=== PATIENT | male | born 1935 | race Caucasian/White ===

== ENCOUNTER 2019-11-16 15:24 | Inpatient (IN) | payer OTHER, BC ==
[~2019-11-16] VITALS: Ht 180.3 cm; Wt 60.8 kg
[2019-11-16 15:34] VITALS: BP 149/78
--- NOTE | 2019-11-16 15:51 | NUR ---
PT WHEELCHAIR ASSISTED TO BED 07
--- NOTE | 2019-11-16 15:57 | NUR ---
84 Y/O MALE BIB FAMILY MEMBER. PT TRANSFERRED FROM WHEELCHAIR TO GURNEY VIA 2 PERSON CARRY. PT HAS DEMENTIA AND UNABLE TO ANSWER QUESTIONS/FOLLOW MY COMMANDS, THUS PT'S DAUGHTER STATE THAT THE BOARD AND CARE REPORTED TO PT'S DAUGHTER THAT THE PT HAS BEEN FAVORING HIS LEFT HIP AND PT APPEARS TO HAVE LEFT HIP PAIN. PT'S DAUGHTER STATES PT'S URINE PER BOARD AND CARE IS DARKER AND HAS AN ODOR. VSS. BED IN LOW POSITION, WHEELS LOCKED, 2 SIDERAILS UP. MEDICAL HX: DEMENTIA/HIP (POSSIBLE LEFT BUT DAUGHTER UNSURE) 10-15 YEARS AGO BALDO
--- NOTE | 2019-11-16 16:17 | NUR ---
PER PT'S DAUGHTER PT TOOK TYLENOL AT NOON
[2019-11-16] MEDS ORDERED: NACL 0.9% 1,000 ML IV SCH (16:18)
[2019-11-16] MEDS ORDERED: cefTRIAXone 1,000 MG in DEXT 5% MINI-BAG PLUS 50 ML IV ONE (16:20)
[2019-11-16] MEDS ORDERED: cefTRIAXone 1,000 MG VIAL ONE (17:01)
--- NOTE | 2019-11-16 17:51 | NUR ---
PT RESTING IN BED IN POSITION OF COMFORT. BED LOW, WHEELS LOCKED, 2 SIDERAILS UP. VSS. WILL CONTINUE TO MONITOR.
[2019-11-16 18:28] LABS: BASOPHILS % (AUTO) 0.2 % (0.0-2.0); HEMATOCRIT 24.2 % (36-52); HEMOGLOBIN 8.2 g/dL (12.0-18.0); LYMPHOCYTES # (AUTO) 0.3 K/uL (2.0-11.5); LYMPHOCYTES % (AUTO) 1.8 % (20.5-51.1); MEAN CORPUSCULAR HEMOGLOBIN 29 pg (27-31); MEAN CORPUSCULAR HGB CONC 34 g/dL (33-37); MEAN CORPUSCULAR VOLUME 85.9 fL (80-94); MONOCYTES % (AUTO) 6.4 % (1.7-9.3); NEUTROPHILS # (AUTO) 14.5 K/uL (1.8-7.7); NEUTROPHILS % (AUTO) 91.6 % (42.2-75.2); PLATELET COUNT (AUTO) 305 K/uL (140-450); RED BLOOD CELL COUNT(AUTO) 2.82 MIL/uL (4.20-6.10); RED CELL DISTRIBUTION WIDTH 16.4 % (11.6-13.7); WHITE BLOOD COUNT (AUTO) 15.9 K/uL (4.8-10.8)
[2019-11-16 18:32] LABS: APPEARANCE,URINE CLEAR (CLEAR); BILIRUBIN,URINE NEGATIVE (NEGATIVE); BLOOD, URINE 3+ (NEGATIVE); COLOR,URINE YELLOW (YELLOW); LEUKOCYTE ESTERASE ,URINE 1+ (NEGATIVE); NITRITE, URINE NEGATIVE (NEGATIVE); UGLUCOSE NEGATIVE (NEGATIVE)
[2019-11-16 18:44] LABS: ALBUMIN 1.8 g/dL (3.4-5.0); ANION GAP 13.5 (8-16); ASPARTATE AMINOTRANSFERASE 142 U/L (15-37); CARBON DIOXIDE 25.4 mmol/L (21-32); CHLORIDE 102 mmol/L (98-107); CREATININE 0.8 mg/dL (0.6-1.3); GLUCOSE 203 mg/dL (74-106); POTASSIUM 4.9 mmol/L (3.5-5.1); SODIUM SERUM 136 mmol/L (136-145); TOTAL BILIRUBIN 0.5 mg/dL (0.0-1.0); UREA NITROGEN, BLOOD 34 mg/dL (7-18)
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
--- NOTE | 2019-11-16 19:05 | NUR ---
PERMISSION OBTAINED FROM DAUGHTER KENN; CONSENT FOR ALL TREATMENT.
--- NOTE | 2019-11-16 19:17 | NUR ---
DR. CASTILLO AT BEDSIDE EXAMING PT. FAMILY PRESENT AT BEDSIDE TOO.
--- NOTE | 2019-11-16 19:22 | NUR ---
REPORT GIVEN TO TIM BADILLO. TRANSFER OF CARE AT THIS TIME
[2019-11-16 19:24] LABS: RBC,URINE 11-20 (MOD) /HPF (0-5)
[2019-11-16] MEDS ORDERED: DOCU-61 PO (19:38)
[2019-11-16] MEDS ORDERED: OLAN7.5T1 PO (19:38)
[2019-11-16] MEDS ORDERED: FERR325E14 PO (19:38)
[2019-11-16] MEDS ORDERED: POTA10TE30 PO (19:38)
--- NOTE | 2019-11-16 19:45 | NUR ---
PT RESTING IN BED. RESP EVEN AND UNLABORED. VSS.
--- NOTE | 2019-11-16 19:53 | NUR ---
IV THERAPY STARTED ON RIGHT UPPER FOREARM DUE TO ORDER OF CT W/ CONTRAST
[2019-11-16] MEDS ORDERED: ACET-2619 PO (20:03)
[2019-11-16] MEDS ORDERED: TEMA30CA23 PO (20:03)
[2019-11-16] MEDS ORDERED: LORA-476 PO (20:03)
[2019-11-16] MEDS ORDERED: MEMA5TAB PO (20:03)
[2019-11-16] MEDS ORDERED: TRAZ-343 PO (20:03)
--- NOTE | 2019-11-16 21:20 | NUR ---
PT TAKEN TO CT VIA EMMY
[2019-11-16] MEDS ORDERED: DOCUSATE SODIUM 100 MG GELCAP PO PRN (23:15)
[2019-11-16] MEDS ORDERED: HYDROcodone/APAP 7.5/325 MG 1 TAB PO PRN (23:15)
[2019-11-16] MEDS ORDERED: ACETAMINOPHEN 325 MG TAB PO PRN (23:15)
[2019-11-16] MEDS ORDERED: ONDANSETRON 4 MG/2 ML VIAL IM/IVP PRN (23:15)
[2019-11-16 23:44] LABS: PROTHROMBIN TIME 11.8 secs (10.8-13.4)
[2019-11-16 23:52] LABS: CHOL/HDL RATIO 4.3 (1-4.5); FREE T4 (FREE THYROXINE) 1.65 ng/dL (0.76-1.46); MAGNESIUM 1.8 mg/dL (1.8-2.4); PHOSPHORUS 1.9 mg/dL (2.5-4.9); THYROID STIMULATING HORMONE 0.56 uIU/mL (0.34-3.74)
--- NOTE | 2019-11-17 00:05 | NUR ---
RECEIVED PATIENT FROM ED VIA [employer]. REPORT GIVEN FROM ED NURSE STEFANI. NO SOB OR DISTRESS NOTED. ON ROOM AIR. IV ACCESS ON RIGHT HAND 20 GAUGE AND RIGHT FOREARM 20 GAUGE. PATENT, INTACT AND INFUSING WELL. PATIENT NOTED WITH RIGHT HIP SORE AND LOWER RIGHT LEG ABRASION. FONSECA CATHETER IN PLACE, DRAINING DARK COLORED. INITIAL VITAL SIGNS TAKEN. INITIAL ASSESSMENT DONE. PATIENT ON TELE MONITORING. MRSA NARES DONE AND SENT TO LAB. CALL LIGHT WITHIN PATIENT REACH. WILL CONTINUE TO MONITOR PATIENT.
--- NOTE | 2019-11-17 00:05 | NUR ---
Patient will be admitted to care of [facility]. Admited to TELEMETRY. Will go to room 111B. Belongings list completed. Report to HUSAM DUMONT.
[2019-11-17] MEDS: NACL 0.9% 1,000 ML IV SCH ×2 (00:38→15:52)
[2019-11-17] MEDS ORDERED: guaiFENesin DM 200/20 MG-10 ML 10 ML UDC PO PRN (01:55)
[2019-11-17] MEDS ORDERED: LORazepam 1 MG TAB PO PRN (01:55)
[2019-11-17] MEDS ORDERED: ZOLPIDEM 5 MG TAB PO PRN (01:55)
--- NOTE | 2019-11-17 02:20 | NUR ---
ROUNDS DONE. VISIBLE CHEST RISE AND FALL NOTED. WILL CONTINUE TO MONITOR PATIENT.
--- NOTE | 2019-11-17 04:05 | NUR ---
VITALS TAKEN AT THIS TIME. NO DISTRESS NOTED. WILL CONTINUE TO MONITOR PATIENT. Addendum: 11/17/19 at 0504 by Arleth Hart RN CATEGORY SHOULD BE "NURSE" NOT OCCUPATIONAL THERAPY.
[2019-11-17 04:10] VITALS: BP 125/60
--- NOTE | 2019-11-17 06:50 | NUR ---
PATIENT IN STABLE CONDITION. CALL LIGHT WITHIN PATIENT REACH. WILL ENDORSE TO AM SHIFT NURSE FOR CONTINUITY OF CARE.
--- NOTE | 2019-11-17 07:15 | NUR ---
RECEIVED PATIENT FROM ORE FIELDER NURSE HUSAM RESPIRATIONS EVEN AND UNLABORED, ROOM AIR. SKIN ASSESSMENT COMPLETE. SKIN WARM AND DRY. IV SITE PATENT AND INTACT. NO C/O PAIN. NO S/SX ACUTE DISTRESS. PATIENT ORIENTED TO ROOM, STAFF AND CALL LIGHT. CALL LIGHT WITHIN REACH. BED IN LOW POSITION. BED ALARM ON. WILL CONTINUE TO MONITOR.
[2019-11-17 07:22] LABS: ANION GAP 14.6 (8-16); CARBON DIOXIDE 26.6 mmol/L (21-32); CHLORIDE 101 mmol/L (98-107); CREATININE 0.8 mg/dL (0.6-1.3); GLUCOSE 169 mg/dL (74-106); HEMATOCRIT 30.5 % (36-52); HEMOGLOBIN 10.1 g/dL (12.0-18.0); LYMPHOCYTES # (AUTO) 0.5 K/uL (2.0-11.5); LYMPHOCYTES % (AUTO) 3.1 % (20.5-51.1); MEAN CORPUSCULAR HEMOGLOBIN 30 pg (27-31); MEAN CORPUSCULAR HGB CONC 33 g/dL (33-37); MEAN CORPUSCULAR VOLUME 89.3 fL (80-94); MONOCYTES # (AUTO) 0.9 K/uL (0.8-1.0); MONOCYTES % (AUTO) 5.7 % (1.7-9.3); NEUTROPHILS # (AUTO) 14.7 K/uL (1.8-7.7); NEUTROPHILS % (AUTO) 91.2 % (42.2-75.2); PLATELET COUNT (AUTO) 330 K/uL (140-450); POTASSIUM 4.2 mmol/L (3.5-5.1); RED BLOOD CELL COUNT(AUTO) 3.42 MIL/uL (4.20-6.10); RED CELL DISTRIBUTION WIDTH 16.3 % (11.6-13.7); SODIUM SERUM 138 mmol/L (136-145); UREA NITROGEN, BLOOD 26 mg/dL (7-18); WHITE BLOOD COUNT (AUTO) 16.2 K/uL (4.8-10.8)
[2019-11-17 08:00] VITALS: BP 125/60
--- NOTE | 2019-11-17 08:41 | NUR ---
PATIENT HAS BEEN SCREENED AND CATEGORIZED MODERATE NUTRITION RISK. PATIENT WILL BE SEEN WITHIN 3-5 DAYS OF ADMISSION. 11/19/19 11/21/[address]
--- NOTE | 2019-11-17 09:10 | NUR ---
PT PULLED OUT IV RIGHT HAND. LUMEN INTACT. NO INJURY TO SITE NOTED AT THIS TIME. PT IN STABLE CONDITION.
[2019-11-17] MEDS: SODIUM PHOS / POTASSIUM PHOS 1 PKT PDR PO SCH ×3 (09:33→18:12)
[2019-11-17] MEDS: MEMANTINE 10 MG TAB PO SCH (09:33)
--- NOTE | 2019-11-17 10:06 | NUR ---
OFF UNIT FOR HEAD CT W/O CONTRAST. TAKEN BY EMMY. PT IN STABLE CONDITION.
--- NOTE | 2019-11-17 10:14 | NUR ---
FNS CONSULT FOR MALNUTRITION HAS BEEN RECEIVED. PATIENT WILL BE ASSESSED BY RD WITHIN 1-2 DAYS AND RE-SCREEN AND CATEGORIZED HIGH NUTRITIONAL RISK. CHELSY VASQUEZ RD
--- NOTE | 2019-11-17 10:21 | NUR ---
BACK ON UNIT AFTER HEAD CT W/O CONTRAST. PT IN STABLE CONDITION.
--- NOTE | 2019-11-17 10:47 | NUR ---
DISCHARGE PLANNING: THIS IS AN 84 Y/O MALE PATIENT FROM [facility], WHO CAME IN DUE TO DARK COLORED URINE AND LEFT HIP PAIN. PAST MEDICAL HISTORY INCLUDE DEMENTIA, PSYCHOSIS AND ANXIETY. INITIAL DIAGNOSIS OF URINARY TRACT INFECTION AND SEPSIS. CURRENT LABS INCLUDE WBC 16.2, H/H 10.1/30.5, NA/K 138/4.2, BUN/CREA 26/0.8. CURRENT MEDS INCLUDE ROCEPHIN, ZYPREXA, NAMENDA. MRSA NARES, URINE AND BLOOD CULTURES PENDING. HIP X RAY NEGATIVE FOR FRACTURE OT DISLOCATION. CXR NEGATIVE. CT PELVIS/ABD SHOWED RIGHT HIP ARTHROPLASTY. NO CONSULTS AT THIS TIME. DC PLAN PENDING ON PATIENT'S RESPONSE TO TREATMENT. Addendum: 11/19/19 at 1654 by Madelin Mixon CM DC PLANNING: FAXED TO MIKO OROZCO, TWILA KRAMER, LUAN GONZALEZ, MARGARET LEE AND [facility] TO FOLLOW Addendum: 11/20/19 at 1451 by Madelin Mixon CM DC PLANNING PER PT'S DAUGHTER KENN BENAVIDES FAXED TO CORIE GARCIA AND SPOKE WITH BEL AT [facility] , WILL REVIEW THE CASE AND CALL BACK. JANET TO FOLLOW. Addendum: 11/20/19 at 1615 by Madelin Mixon CM DC PLANNING: RECEIVED A CALL FROM PRASHANT ALMEIDA SPOKE WITH BEL ACCEPTED PATIENT CAN GO TO ROOM 109A # TO GIVE REPORT [phone] PER BEL WILL PAY FOR TRANSPORT WITH [facility] [phone] CHARGE NURSE PLS CALL FOR TRANSPORT. Addendum: 11/23/19 at 1233 by Madelin Mixon CM DC PLANNING PT'S WBC TODAY 20.7 DR JEAN BAPTISTE ID ORDERED REPEAT URINALYSIS AND URINE CULTURE CONTINUE CURRENT THERAPY WITH [facility] IV NOTIFIED CORIE ALMEIDA LEFT A MESSAGE FOR BEL [phone] .JANET TO FOLLOW
[2019-11-17 12:00] VITALS: BP 129/78
--- NOTE | 2019-11-17 12:23 | NUR ---
PT SLEEPING AT THIS TIME. EASILY AROUSED. RESPIRATIONS EVEN AND UNLABORED. BED IN LOW POSITION. CALL LIGHT AT BEDSIDE. WILL CONTINUE TO MONITOR.
--- NOTE | 2019-11-17 13:15 | NUR ---
ASSISTED WITH FEEDING AT THIS TIME. PUREE MEAL PT AT 25% WITH 288ML FLUID INTAKE.
[2019-11-17] MEDS ORDERED: CRUSHER, PILL MC ONE (13:49)
--- NOTE | 2019-11-17 13:53 | NUR ---
Per daughter Barbie patient had already flu vaccine two weeks ago but not pneumonia Vaccine, wants pneumonia vaccine
--- NOTE | 2019-11-17 15:04 | NUR ---
11/17/19 RD INITIAL ASSESSMENT COMPLETED PLEASE REFER TO NUTRITION ASSESSMENT UNDER CARE ACTIVITY FOR ESTIMATED NUTRITIONAL NEEDS. 1. RECOMMEND NPO UNTIL FURTHER SWALLOW EVALUATION RECOMMENDATIONS 2. IF PATIENT PASSES SWALLOW EVALUATION CONSIDER ADDING ENSURE TID 3. IF PATIENT FAILS SWALLOW EVALUATION CONSIDER ENTERAL NUTRITION AND POSSIBLE PEG PLACEMENT RELATED TO MALNUTRITION 4. RD TO FOLLOW-UP 2-3 DAYS, HIGH RISK CHELSY VASQUEZ, RD
--- NOTE | 2019-11-17 15:33 | NUR ---
PT PULLED OUT IV. NO INJURY AT SITE. LUMEN INTACT. WILL PLACE NEW IV. PT IN STABLE CONDITION.
[2019-11-17 16:00] VITALS: BP 101/58
--- NOTE | 2019-11-17 16:05 | NUR ---
* ST NOTE * Pt seen at bedside w/BRIDGE WORKER present. Pt alert and cooperative throughout session, reporting no c/o pain at this time as well as exhibiting no facial grimacing, groaning, etc. Bedside dysphagia and oral mechanism exams completed. See evaluation report for further details. Pt tolerating 2/2 alternating PO trials of puree apple sauce 1-4 CCs at a time via a spoon w/o s/s of aspiration or choking. Pt swatting clinician's hand away when clinician presenting pt w/apple juice via straw despite multiple attempts and cueing provided. Pt however tolerating 3/3 alternating PO trials of regular solid saltine crackers as well as 6/6 alternating PO trials of thin liquid apple juice via a cup and spoon, all w/o s/s of aspiration or choking at this time. Pt presenting w/residue of regular solid crackers on lingua as well as pocketing of texture though. Because pt presenting with missing dentition, dx of psychosis and dementia, as well as residue and pocketing of regular solids at this time, it is recommended pt's PO diet consistency be modified to puree textures w/thin liquids via cup or straw only for all meals, w/strict aspiration precautions in place 2/2 to pt's impulsivity w/self-feeding at this time. Pt and caregivers/Shirley and BRIDGE WORKER education completed re: aspiration precautions and safe swallow compensatory strategies pt and caregivers/nsg could utilize to aid pt w/swallow function, w/pt indifferent but caregivers/nsg verbalizing understanding and agreement w/clinician's recommendations. Pt presents w/potential for a diet upgrade as well, considering pt's PLOF was a PO DIET consistency of regular solids w/thin liquids. Thus ST to ff 2x/week for 2 weeks to address swallow function and to assess least restrictive PO diet consistency. Pt, caregiver/Nsg Shirley & BRIDGE WORKER education completed re: results of evaluation; benefits of receiving skilled BEAD INSPECTOR services; POC; and prognosis for improvement; with pt indifferent but caregiver/Nsg Shirley and caregiver/BRIDGE WORKER verbalizing understanding and agreement w/clinician's recommendations. Recommend: - PO DIET CONSISTENCY OF PUREE TEXTURES W/THIN LIQUIDS for all meals - PO MEDICATION ADMINISTRATION CRUSHED IN PUREE TEXTURES - MAINTAIN STRICT ASPIRATION PRECAUTIONS DURING PT'S PO INTAKE 2/2 TO PT'S IMPULSIVITY DURING SELF-FEEDING - Pt requires assistance w/feeding - FEEDER TO SIT PT UP AT 80-90 DEGREE ANGLE DURING PO INTAKE; FEED PT SLOWLY; ALTERNATE BTWN SOLIDS & LIQUIDS; AND PROVIDE SMALL BITES/SIPS - Pt also tolerates thin liquids safest via cup or spoon - Avoid use of straw at this time ST to FF 2x/week for 2 weeks to assess least restrictive PO diet consistency as well as to address swallow function and tolerance of current PO diet consistency. Time In/Out 15:20 - 15:50 NOMS Level 3
[2019-11-17] MEDS ORDERED: VANCOMYCIN PER PHARMACY MC PRN (16:35)
--- NOTE | 2019-11-17 17:02 | NUR ---
NEW IV PLACED AT THIS TIME. 20G RIGHT FOREARM. PT TOLERATED WELL. WILL CONTINUE TO MONITOR. BED IN LOW POSITION, CALL LIGHT AT BEDSIDE. BED ALARM ON. WILL CONTINUE TO MONITOR.
[2019-11-17] MEDS: VANCOMYCIN IV SCH (18:13)
[2019-11-17] MEDS: DEXTROSE 5% IV SCH (18:13)
--- NOTE | 2019-11-17 19:19 | NUR ---
GAVE REPORT TO K9 HANDLER NURSE HUSAM FOR CONTINUITY OF CARE. PT IN STABLE CONDITION.
--- NOTE | 2019-11-17 19:20 | NUR ---
RECEIVED BEDSIDE REPORT FROM AM SHIFT NURSE. PATIENT IS LYING ON BED, RESTING WITH EYES CLOSED. NO SOB OR DISTRESS NOTED ON ROOM AIR. IV ACCESS ON RIGHT AC 20 GAUGE. NOTED WITH RIGHT HIP SORE AND LOWER RIGHT LEG ABRASION. PATENT AND INTACT. INITIAL ASSESSMENT DONE. BOARD UPDATED. BED IN LOW, SAFETY MEASURES IN PLACE. CALL LIGHT PLACED WITHIN PATIENT REACH. WILL CONTINUE TO MONITOR PATIENT.
[2019-11-17 20:15] VITALS: BP 115/61
[2019-11-17] MEDS: OLANZapine 2.5 MG TAB PO SCH (20:49)
--- NOTE | 2019-11-17 22:22 | NUR ---
PATIENT IN STABLE CONDITION. ENDORSED TO CHARGE NURSE ELIEZER FOR CONTINUITY OF CARE.
[2019-11-18] VITALS: BP 111/74
--- NOTE | 2019-11-18 00:12 | NUR ---
PT SLEEPING NOW; CALM; WILL CONTINUE TO MONITOR; VITALS SIGNS WITHIN NORMAL LIMIT, O2 SAT 94% AT 10 L OXYMIZER Addendum: 11/19/19 at 0417 by Jie Perez RN WRONG NOTE
[2019-11-18 04:00] VITALS: BP 111/58
[2019-11-18] MEDS: DEXTROSE 5% IV SCH ×2 (05:37→17:39)
[2019-11-18] MEDS: VANCOMYCIN IV SCH ×2 (05:37→17:39)
--- NOTE | 2019-11-18 06:23 | NUR ---
PT RESTING QUIETLY, NO SIGN CAMILA DISTRESS.
--- NOTE | 2019-11-18 07:10 | NUR ---
RECEIVED BEDSIDE REPORT FROM TAR WORKER CHARGE NURSE ELIEZER. PT IS ASLEEP, NO S/S OF DISTRESS NOTED. FALL PRECAUTIONS IN PLACE. IV SITE R AC 20 G, INFUSING NS 60 ML/HR. PT IS ON ROOM AIR, SKIN INTACT ASIDE FORM REDNESS ON THE R HIP AND ABRASION ON THE R LEG. CALL LIGHT IS WITHIN REACH. WILL CONTINUE TO MONITOR. Addendum: 11/18/19 at 1014 by Michelle Morales RN FONSECA CATHETER IN PLACE DRAINING DARK YELLOW CLEAR URINE.
[2019-11-18 07:46] LABS: BASOPHILS % (AUTO) 0.2 % (0.0-2.0); EOSINOPHILS % (AUTO) 0.1 % (0.0-4.0); HEMATOCRIT 26.4 % (36-52); HEMOGLOBIN 9.1 g/dL (12.0-18.0); LYMPHOCYTES # (AUTO) 0.5 K/uL (2.0-11.5); LYMPHOCYTES % (AUTO) 6.3 % (20.5-51.1); MEAN CORPUSCULAR HEMOGLOBIN 30 pg (27-31); MEAN CORPUSCULAR HGB CONC 34 g/dL (33-37); MEAN CORPUSCULAR VOLUME 85.8 fL (80-94); MONOCYTES # (AUTO) 0.4 K/uL (0.8-1.0); MONOCYTES % (AUTO) 4.8 % (1.7-9.3); NEUTROPHILS # (AUTO) 7.6 K/uL (1.8-7.7); NEUTROPHILS % (AUTO) 88.6 % (42.2-75.2); PLATELET COUNT (AUTO) 341 K/uL (140-450); RED BLOOD CELL COUNT(AUTO) 3.08 MIL/uL (4.20-6.10); RED CELL DISTRIBUTION WIDTH 16.3 % (11.6-13.7); WHITE BLOOD COUNT (AUTO) 8.6 K/uL (4.8-10.8)
[2019-11-18 07:53] LABS: ANION GAP 11.2 (8-16); CHLORIDE 105 mmol/L (98-107); CREATININE 0.8 mg/dL (0.6-1.3); GLUCOSE 204 mg/dL (74-106); POTASSIUM 5.2 mmol/L (3.5-5.1); SODIUM SERUM 140 mmol/L (136-145); UREA NITROGEN, BLOOD 32 mg/dL (7-18)
[2019-11-18 07:54] LABS: MAGNESIUM 2.1 mg/dL (1.8-2.4); PHOSPHORUS 2.8 mg/dL (2.5-4.9)
[2019-11-18 08:00] VITALS: BP 141/81
[2019-11-18 08:08] LABS: T4 (THYROXINE) 7.4 ug/dL (4.5-12.0)
[2019-11-18] MEDS: NACL 0.9% 1,000 ML IV SCH (08:32)
[2019-11-18] MEDS: SODIUM PHOS / POTASSIUM PHOS 1 PKT PDR PO SCH ×2 (09:00→13:00)
[2019-11-18] MEDS: MEMANTINE 10 MG TAB PO SCH (10:10)
--- NOTE | 2019-11-18 10:13 | NUR ---
AM NAMENDA ADMINISTERED CRUSHED WITH APPLE SAUCE. HELD THE ORDERED PHOS-NAK DUE TO ELEVATED POTASSIUM, AND NORMAL RANGE SODIUM AND PHOSPHORUS.
--- NOTE | 2019-11-18 11:36 | NUR ---
*S.T. Treatment Note* S: Pt seen at bedside. Cleared by TIM Martinez, who reported that pt tolerated breakfast very well, fed by STANDPIPE TENDER this AM. Pt confused, verbose, not responding to simple questions in Mongolian or following simple commands. No family or caregiver present at time of tx. O: P.O. trials puree and thin liquids via spoon. Pt talking w/ puree boluses in oral cavity, resulting in delayed pharyngeal swallow response. Able to swallow thin liquids in timely manner. No overt s/s aspiration. Voice clear after swallows. A: Pt is confused and talkative even when food is in mouth. Not appropriate for P.O. trials solids at this time, as his talking puts him at risk for aspiration. Continues to demonstrate mod oropharyngeal dysphagia. P: Recommend continue pureed diet, thin liquids by spoon only. Endorsed to TIM Martinez at bedside. Time 3803-4955
[2019-11-18 12:00] VITALS: BP 125/65
[2019-11-18] MEDS ORDERED: FUROSEMIDE 40 MG/4 ML VIAL IVP SCH (12:02)
--- NOTE | 2019-11-18 12:05 | NUR ---
PT STARTED DESATTING TO LOW 73% ON ROOM AIR. PT IS TACHYPNEIC (28 BREATHS PER MIN). HOB PUT UP 45 DEGREES. RESIDENTS NOTIFIED. PLACED PT ON O2 VIA NASAL CANNULA, FIRST ON 2L, THEN BUMPED UP TO 4 WHEN THERE WAS NO CHANGE IN O2. DR BRAUN CONSULTED. STAT CXR AND ABG'S DONE, AND IV SALINE LOCKED. STAT 40 MG IV LASIX GIVEN FOR PULMONARY EDEMA, PER DR BRAUN'S ORDER. PT IS CURRENTLY ON 9L OXIMIZER PER RT. SATTING AROUND 82-84% AT THIS TIME. WILL CONTINUE TO MONITOR PT
--- NOTE | 2019-11-18 13:25 | NUR ---
CALLED PT'S DAUGHTER KENN TO GET CONSENT FOR CONTRAST ADMINISTRATION FOR CHEST CT W/ CONTRAST. DAUGHTER DID NOT SIGNAL TOWER DIRECTOR, I LEFT HER A MESSAGE TO CALL ME BACK. WILL NOTIFY RADIOLOGY SOON CONSENT IS OBTAINED. Addendum: 11/18/19 at 1344 by Michelle Morales RN PT'S DAUGHTER CALLED BACK AND GAVE CONSENT FOR CONTRAST ADMINISTRATION.
[2019-11-18] MEDS ORDERED: ALBUTEROL SULFATE/IPRATROPIU 3 ML SOL IH PRN (13:30)
--- NOTE | 2019-11-18 13:31 | NUR ---
PT HAVING BLE US AT THIS TIME.
--- NOTE | 2019-11-18 13:46 | NUR ---
PT HAD O2 OFF AT START OF BREATHING TX AND TOOK TX OFF TWICE AND HIT HAND OF RT AND WOULD NOT FINISH TX PLACED PT BACK ON OXYIMIZER AND NOTIFIED RN. BOWER
--- NOTE | 2019-11-18 13:55 | NUR ---
SUBJECT SCIENTIFIC RESEARCH CAME TO CHECK PT'S IV FOR CONTRAST ADMINISTRATION, FLUSHED THE IV AND THE IV BLEW RIGHT AWAY. WILL PLACE A NEW 20 G IV.
--- NOTE | 2019-11-18 14:33 | NUR ---
NEW IV STARTED L AC 20 G
[2019-11-18] MEDS: ALBUTEROL SULFATE/IPRATROPIU 3 ML SOL IH SCH ×3 (15:00→22:59)
--- NOTE | 2019-11-18 15:13 | NUR ---
PT GOING FOR CT SCAN W/ CONTRAST AT THIS TIME
[2019-11-18 16:00] VITALS: BP 104/56
[2019-11-18] MEDS: PIPERACILLIN/TAZOBACTAM 3.375 GM in DEXTROSE 5% 50 ML IV SCH ×2 (16:54→23:42)
--- NOTE | 2019-11-18 17:02 | NUR ---
TURNED UP O2 TO 12 L/MIN, ON OXIMIZER, PT SATS WENT UP TO 96-97%. WILL CONTINUE TO MONITOR. Addendum: 11/18/19 at 1740 by Michelle Morales RN TURNED O2 DOWN TO 10 L/MIN ON OXIMIZER, PT HAS SUSTAINED O2 OF 92-94% FOR THE PAST 15 MINUTES.
--- NOTE | 2019-11-18 18:20 | NUR ---
SPOKE WITH PT'S DAUGHTER KENN ON THE PHONE, SHE WANTED AN UPDATE, I UPDATED HER ON PT'S CHEST CT RESULTS AND LET HER KNOW THAT PT HAS PNEUMONIA AND IS ON IV ABX FOR PNEUMONIA, AND THAT HE IS ON OXYGEN. KENN SAID THAT SHE WILL VISIT TOMORROW.
--- NOTE | 2019-11-18 19:16 | NUR ---
RECEIVED PT FROM AM SHIFT. PT IN NO APPARENT RESPIRATORY DISTRESS AT THIS TIME; HR 84, RR 20, SPO2 95% ON 10L OXIMIZER AND A COARSE BREATH SOUNDS ON THE UPPER LOBES; COARSE BREATH SOUNDS ON LOWER LOBES. HHN TX GIVEN ORDERED WITH NO ADVERSE REACTION. PT INFORMED TO CALL RN OR GROUNDS PERSON FOR HHN PRN TX WHEN EXPERIENCING SOB. HOB > 30. WILL CONTINUE TO MONITOR PT.
--- NOTE | 2019-11-18 19:25 | NUR ---
ENDORSED PT TO REFRIGERATION ENGINEER NURSE FOR CONTINUITY OF CARE. PT RECEIVING A BREATHING TX AT THIS TIME.
--- NOTE | 2019-11-18 19:30 | NUR ---
RT HERE PATIENT'S O2 SAT AT 88%; RT ADJUSTED OXYMIZER AT 10 ML/HR. O2 SAT NOW AT 94%
[2019-11-18] MEDS: DEXT 5% / NACL 0.9% 500 ML IV SCH (19:40)
[2019-11-18 20:00] VITALS: BP 111/48
[2019-11-18] MEDS: OLANZapine 2.5 MG TAB PO SCH (20:08)
--- NOTE | 2019-11-18 20:14 | NUR ---
PT PULLED ON HIS FONSECA CATHETER, BLEEDING NOTED, FLUSHED W/ NS, WILL OBSERVE FOR ANY MORE SIGNS OF BLEEDING.
--- NOTE | 2019-11-18 20:15 | NUR ---
PT KEEPS ON TAKING OFF 02 WILL ADMINISTER ATIVAN PRN ORDERED
--- NOTE | 2019-11-18 22:56 | NUR ---
RT AT BEDSIDE CHECKED ON PATIENT, NO SOB, NO RESPIRATORY DISTRESS NOTED
--- NOTE | 2019-11-18 23:45 | NUR ---
PT SLEEPING NOW; CALM; WILL CONTINUE TO MONITOR; VITALS SIGNS WITHIN NORMAL LIMIT, O2 SAT 94% AT 10 L OXYMIZER
[2019-11-19] VITALS: BP 112/53
--- NOTE | 2019-11-19 00:30 | NUR ---
IVF D/C ON THE RIGHT AC G 22, BRUISED SEEN FORMING ON THE SITE. TOOK OUT CANNULA INTACT, WILL ENDORSE NEXT SHIFT AND TO CONTINUE MONITORING ON THE BRUISE. Addendum: 11/20/19 at 0803 by Jie Perez RN CHANGE DATE PLS
--- NOTE | 2019-11-19 02:00 | NUR ---
CHECKED ON FONSECA CATHETER N BLEEDING NOTED, TURNED PATIENT TO ONE SIDE.
[2019-11-19] MEDS: ALBUTEROL SULFATE/IPRATROPIU 3 ML SOL IH SCH ×6 (03:20→23:07)
[2019-11-19] MEDS: PIPERACILLIN/TAZOBACTAM 3.375 GM in DEXTROSE 5% 50 ML IV SCH ×5 (04:38→23:13)
[2019-11-19 06:00] VITALS: BP 112/53
[2019-11-19] MEDS ORDERED: VANCOMYCIN 1,000 MG VIAL ONE (06:19)
[2019-11-19 06:26] LABS: BASOPHILS # (AUTO) 0.1 K/uL (0.00-0.22); BASOPHILS % (AUTO) 0.7 % (0.0-2.0); EOSINOPHILS # (AUTO) 0.1 K/uL (0-0.4); EOSINOPHILS % (AUTO) 1.5 % (0.0-4.0); HEMATOCRIT 22.6 % (36-52); LYMPHOCYTES # (AUTO) 1.2 K/uL (2.0-11.5); MEAN CORPUSCULAR HEMOGLOBIN 30 pg (27-31); MEAN CORPUSCULAR HGB CONC 35 g/dL (33-37); MEAN CORPUSCULAR VOLUME 86.1 fL (80-94); MONOCYTES # (AUTO) 0.3 K/uL (0.8-1.0); MONOCYTES % (AUTO) 3.5 % (1.7-9.3); NEUTROPHILS # (AUTO) 7.3 K/uL (1.8-7.7); NEUTROPHILS % (AUTO) 81.3 % (42.2-75.2); PLATELET COUNT (AUTO) 296 K/uL (140-450); RED BLOOD CELL COUNT(AUTO) 2.63 MIL/uL (4.20-6.10); RED CELL DISTRIBUTION WIDTH 16.2 % (11.6-13.7)
[2019-11-19] MEDS: DEXTROSE 5% IV SCH (06:41)
[2019-11-19] MEDS: VANCOMYCIN IV SCH (06:41)
[2019-11-19] MEDS: DEXT 5% / NACL 0.9% 500 ML IV SCH ×2 (06:50→20:52)
[2019-11-19 06:56] LABS: CHLORIDE 106 mmol/L (98-107); CREATININE 0.9 mg/dL (0.6-1.3); GLUCOSE 323 mg/dL (74-106); SODIUM SERUM 143 mmol/L (136-145); UREA NITROGEN, BLOOD 31 mg/dL (7-18)
[2019-11-19 07:27] LABS: ANION GAP 10.8 (8-16)
--- NOTE | 2019-11-19 07:41 | NUR ---
RECEIVED PT FROM PM CHECK AND TRANSFER BEADER FOR CONTINUITY OF CARE. PT IS AAOX1, SPEEPY BUT AROUSABLE TO NAME. PT IN NO APPARENT RESPIRATORY DISTRESS AT THIS TIME. ON 10L OXIMIZER AND A COARSE BREATH SOUNDS ON THE UPPER LOBES; COARSE BREATH SOUNDS ON LOWER LOBES. SKIN INTACT BUT REDNESS ON RIGHT HIP NOTED. PT BEDBOUND. UNABLE TO DISCUSS POC WITH PT. BOARD UPDATED. ALL SAFETY CHECKS DONE. YELLOW GOWN OM PT. BED ALARM ACTIVATED. FALL RISK SIGNS POSTED. ALL NEEDS MET. WILL ROUND FREQUENTLY ON PT.
[2019-11-19 08:00] VITALS: BP 136/64
[2019-11-19 08:09] LABS: HEPATITIS A ANTIBODY IGM Negative (Negative); HEPATITIS B CORE AB TOTAL Negative (Negative); HEPATITIS B SURFACE ANTIBODY Non Reactive (.); HEPATITIS B SURFACE ANTIGEN Negative (Negative)
[2019-11-19 08:25] LABS: POTASSIUM 2.8 mmol/L (3.5-5.1)
[2019-11-19 08:45] LABS: MAGNESIUM 1.8 mg/dL (1.8-2.4); PHOSPHORUS 2.6 mg/dL (2.5-4.9)
[2019-11-19] MEDS: MEMANTINE 10 MG TAB PO SCH (09:00)
[2019-11-19] MEDS ORDERED: POTASSIUM CHLORIDE 40 MEQ, LIDOCAINE MPF 1% 25 MG in NACL 0.9% 250 ML IV ONE ×2 (09:00→14:00)
--- NOTE | 2019-11-19 09:21 | NUR ---
NO PO MEDS ADMINISTERED TO PT DUE TO VERY SLEEPY STATE. PT IN STABLE CONDITION, VITALS STABLE. WILL CONTINUE TO ROUND ON PT.
--- NOTE | 2019-11-19 11:41 | NUR ---
PT SLEEPING ALL NEEDS MET.
--- NOTE | 2019-11-19 11:43 | NUR ---
*S.T. Note* Order for reassessment received, chart and recent imaging results reviewed. D/w TIM Garcia who reported she withheld meds due to pt being too lethargic this AM due to having been given Ativan last night. Daughter present at bedside, who reported that pt's baseline is regular diet, thin liquids and that pt talks w/ food/liquid in his mouth at baseline and has not shown s/s aspiration in the past. Pt too lethargic at this time for safe P.O. trial intake. Will reattempt tomorrow. D/w family members at bedside and endorsed to TIM Garcia. Time [id number]
[2019-11-19 12:00] VITALS: BP 117/57
--- NOTE | 2019-11-19 13:54 | NUR ---
PT SLEEPING. ALL NEEDS MET.
--- NOTE | 2019-11-19 14:45 | NUR ---
11/19/19 RD FOLLOW UP COMPLETED PLEASE REFER TO NUTRITION ASSESSMENT UNDER CARE ACTIVITY FOR ESTIMATED NUTRITIONAL NEEDS. 1. RECOMMEND NPO UNTIL FURTHER SWALLOW EVALUATION RECOMMENDATIONS 2. IF PATIENT PASSES SWALLOW EVALUATION CONSIDER ADDING ENSURE TID 3. IF PATIENT FAILS SWALLOW EVALUATION CONSIDER ENTERAL NUTRITION AND POSSIBLE PEG PLACEMENT RELATED TO MALNUTRITION 4. RD TO FOLLOW-UP 2-3 DAYS, HIGH RISK CHELSY VASQUEZ, RD
--- NOTE | 2019-11-19 15:26 | NUR ---
PT SLEEPING. WILL CONTINUE TO ROUND ON PT.
[2019-11-19 16:00] VITALS: BP 122/55
--- NOTE | 2019-11-19 17:48 | NUR ---
PT AWAKE AND PULLING AT LINES AND TUBES. PT DESATS WHEN OXYMIZER IS REMOVED. PT ALSO PULLING AT FONSECA CATH. AT BEDSIDE. RESTRAINTS ORDERED FOR PT SAFETY AND FOR DISRUPTION OF CARE.
[2019-11-19] MEDS ORDERED: NACL 0.9% IV SCH (18:00)
[2019-11-19] MEDS ORDERED: VANCOMYCIN IV SCH (18:00)
[2019-11-19] MEDS: VANCOMYCIN 1,000 MG in NACL 0.9% 250 ML IV SCH (18:55)
[2019-11-19 19:31] VITALS: BP 114/44
--- NOTE | 2019-11-19 19:56 | NUR ---
ENDORSED PT TO TURKEY BONER FOR CONTINUITY OF CARE. PT IN STABLE CONDITION AT THIS TIME.
[2019-11-19] MEDS: OLANZapine 2.5 MG TAB PO SCH (20:11)
--- NOTE | 2019-11-19 20:52 | NUR ---
D5 NS 1LITER VERIFIED W/ NEIL RN. NO 500ML AVAILABLE TOOK OUT 1 LITER
--- NOTE | 2019-11-19 21:00 | NUR ---
CHECKED ON THE RESTRAINTS NO BLEEDING, GOOD CIRCULATION .
[2019-11-20] VITALS: BP 115/45
--- NOTE | 2019-11-20 00:30 | NUR ---
PRESENT IV DISCONTINUED PT FOUND TO HAVE HEMATOMA ON THE IV SITE. RE-INSERTED ON THE RIGHT FA G 24
--- NOTE | 2019-11-20 02:00 | NUR ---
CHECKED ON THE SOFT RESTRAINTS FREQUENTLY. GOOD CIRCULATION
[2019-11-20] MEDS: ALBUTEROL SULFATE/IPRATROPIU 3 ML SOL IH SCH ×6 (03:10→22:56)
[2019-11-20 04:00] VITALS: BP 100/46
[2019-11-20] MEDS: PIPERACILLIN/TAZOBACTAM 3.375 GM in DEXTROSE 5% 50 ML IV SCH ×3 (05:14→17:13)
[2019-11-20] MEDS: VANCOMYCIN 1,000 MG in NACL 0.9% 250 ML IV SCH (06:01)
[2019-11-20 07:18] LABS: BASOPHILS % (AUTO) 0.1 % (0.0-2.0); HEMATOCRIT 22.8 % (36-52); HEMOGLOBIN 7.9 g/dL (12.0-18.0); LYMPHOCYTES # (AUTO) 0.7 K/uL (2.0-11.5); LYMPHOCYTES % (AUTO) 4.4 % (20.5-51.1); MEAN CORPUSCULAR HEMOGLOBIN 30 pg (27-31); MEAN CORPUSCULAR HGB CONC 35 g/dL (33-37); MEAN CORPUSCULAR VOLUME 86.1 fL (80-94); MONOCYTES # (AUTO) 0.4 K/uL (0.8-1.0); MONOCYTES % (AUTO) 2.7 % (1.7-9.3); NEUTROPHILS # (AUTO) 15.2 K/uL (1.8-7.7); NEUTROPHILS % (AUTO) 92.8 % (42.2-75.2); PLATELET COUNT (AUTO) 275 K/uL (140-450); RED BLOOD CELL COUNT(AUTO) 2.65 MIL/uL (4.20-6.10); RED CELL DISTRIBUTION WIDTH 16.4 % (11.6-13.7); WHITE BLOOD COUNT (AUTO) 16.4 K/uL (4.8-10.8)
--- NOTE | 2019-11-20 07:24 | NUR ---
ENDORSED TO NEXT SHIFT, PT IN STABLE CONDITION, W/ VANCO STILL RUNNING
--- NOTE | 2019-11-20 07:25 | NUR ---
RECEIVED BEDSIDE SHIFT REPORT FROM COAT CUTTER NURSE FOR CONTINUATION OF CARE.
[2019-11-20 07:34] LABS: ANION GAP 9.4 (8-16); CHLORIDE 110 mmol/L (98-107); GLUCOSE 277 mg/dL (74-106); POTASSIUM 3.4 mmol/L (3.5-5.1); SODIUM SERUM 146 mmol/L (136-145); UREA NITROGEN, BLOOD 29 mg/dL (7-18)
[2019-11-20 07:47] LABS: MAGNESIUM 1.9 mg/dL (1.8-2.4); PHOSPHORUS 2.7 mg/dL (2.5-4.9)
[2019-11-20] MEDS: DEXT 5% / NACL 0.9% 500 ML IV SCH ×2 (07:50→21:34)
[2019-11-20] MEDS ORDERED: KCL 20 MEQ/WATER INJ PREMIX 100 ML IV SCH (09:00)
[2019-11-20] MEDS: MEMANTINE 10 MG TAB PO SCH (09:53)
--- NOTE | 2019-11-20 10:00 | NUR ---
MEDICATIONS CRUSHED AND MIXED WITH APPLESAUCE AND TOLERATED WELL. PATIENT IS RUNNING IVF AT 50 ML/HR. TOLERATING WELL. BED IS IN LOW POSITION, CALL LIGHT ON AND WITHIN REACH. WILL CONTINUE TO MONITOR.
[2019-11-20 12:00] VITALS: BP 117/54
--- NOTE | 2019-11-20 12:57 | NUR ---
*S.T. Treatment Note* S: Pt seen at bedside w/ TIM Blackman present. Pt awake, alert, following commands intermittently. No family/caregiver present at time of tx. Pt did not appear to be in pain (0 FLACCS). Per RN, pt was given gelatin and applesauce this morning and demo'd delayed pharyngeal swallow response. O: Pt given P.O. trials of puree (applesauce), nectar thick water via spoon and regular/non-thickened water via spoon. Pt demo'd moderate-severe oropharyngeal dysphagia characterized by incomplete bolus formation and A-P propulsion w/ anterior oral cavity residue post swallow of puree. Delayed pharyngeal swallow responses across all textures and immediate coughing after swallow of spoon bolus of regular/thin water. Voice clear after swallows of all other textures. This is a decline from last treatment on 11/18/19. A: Pt presents w/ moderate-severe oropharyngeal dysphagia and is at high risk for aspiration exacerbated by confusion, inability to self-feed and recent decline in oropharyngeal swallow function. P: Recommend: 1) Resume pureed diet, downgrade to NECTAR THICK LIQUIDS VIA SPOON ONLY. No straws. 2) P.O. meds crushed and mixed w/ puree such as applesauce. 3) Aggressive oral care 3x/day. 4) Aspiration precautions includin:1 feeder, upright at 90 degrees for all P.O. intake, feed only if alert, withhold tray if pt lethargic, remain upright at 45 degrees for 30 min. after meals. 5) S.T. to follow up w/ tx 1x/1wk to ensure tolerance of recommended diet textures. D/w pt results/recs; endorsed to TIM Blackman. Time [id number]
--- NOTE | 2019-11-20 13:00 | NUR ---
SPEECH THERAPY EVALUATED PATIENTS SWALLOWING COMPETENCY AT BEDSIDE, EVALUATED FOR ASPIRATION RISK. PATIENT CHOKED ON CRACKERS, ST WAS ABLE TO EXTRACT CRACKER FROM PATIENTS MOUTH SAFELY. PATIENT IS AT RISK FOR ASPIRATING FOOD AND LIQUIDS. BED IN LOW POSITION, CALL LIGHT ON AND WITHIN REACH. WILL CONTINUE TO MONITOR.
--- NOTE | 2019-11-20 15:30 | NUR ---
PICC LINED ORDERED FOR IV ANTIBIOTIC USE PER MD'S ORDERS, PATIENT PULLED OUT PERIPHERAL IV LINE. CONSENT RECEIVED FROM DAUGHTER TIM HAWK KELSIE RECEIVED TELEPHONE CONSENT WITH BUILDING SUPERINTENDENT. CONCERNS ADDRESSED OVER THE PHONE. RISKS AND BENEFITS REPORTED TO DAUGHTER. PERIPHERAL IV ACCESS WAS PLACED BY ER NURSE. FLUSHED AND PATENT. BED IN LOW POSITION, SOFT RESTRAINTS INTACT. WILL CONTINUE TO MONITOR.
--- NOTE | 2019-11-20 15:37 | NUR ---
SPOKE WITH LA NENA FROM PICC LINE SERVICE, STATED THAT THERE IS NO PICC LINE NURSE AVAILABLE TODAY TO GO TO THIS AREA BUT SHE CAN SEND A PICC LINE NURSE FIRST THING IN THE MORNING TOMORROW. SALES MERCHANDISER MARGARITA AND DR. WATTS NOTIFIED.
[2019-11-20 16:00] VITALS: BP 125/58
--- NOTE | 2019-11-20 19:35 | NUR ---
BEDSIDE SHIFT REPORT GIVEN TO FURNACE COMBINATION ANALYST NURSE FOR CONTINUATION OF CARE.
--- NOTE | 2019-11-20 19:36 | NUR ---
RECEIVED REPORT FROM AM SHIFT. PATIENT LYING DOWN IN BED, SOFT WRIST RESTRAINTS ON PATIENT DUE TO PULLING OUT TUBING AND IV LINES. AAOX1, CALM, CONFUSED, SKIN COLOR APPROPRIATE TO ETHNICITY, WARM TO TOUCH. SKIN INTACT. IV SITE INTACT, PATENT, AND INFUSING IVF PER MD ORDERS. RESPIRATIONS EVEN, UNLABORED, ON O2 10L/MIN VIA OXIMIZER. REVIEWED PLAN OF CARE WITH PATIENT. UNABLE TO COMPREHEND. WILL CONTINUE TO MONITOR.
[2019-11-20 20:00] VITALS: BP 106/60
[2019-11-20] MEDS: OLANZapine 2.5 MG TAB PO SCH (21:37)
[2019-11-21] VITALS: BP 118/53
--- NOTE | 2019-11-21 02:15 | NUR ---
PATIENT LYING DOWN IN BED, NO DISTRESS NOTED. NO INJURIES FROM RESTRAINTS. WILL CONTINUE TO MONITOR.
[2019-11-21] MEDS: ALBUTEROL SULFATE/IPRATROPIU 3 ML SOL IH SCH ×6 (03:06→22:53)
[2019-11-21 04:00] VITALS: BP 123/65
--- NOTE | 2019-11-21 04:30 | NUR ---
ASSISTED PLATE DRILLER IN REPOSITIONING PATIENT. WILL CONTINUE TO MONITOR.
[2019-11-21 06:56] LABS: HEMATOCRIT 21.1 % (36-52); HEMOGLOBIN 7.3 g/dL (12.0-18.0); MEAN CORPUSCULAR HEMOGLOBIN 29 pg (27-31); MEAN CORPUSCULAR HGB CONC 34 g/dL (33-37); MEAN CORPUSCULAR VOLUME 85.2 fL (80-94); PLATELET COUNT (AUTO) 291 K/uL (140-450); RED BLOOD CELL COUNT(AUTO) 2.47 MIL/uL (4.20-6.10); RED CELL DISTRIBUTION WIDTH 15.8 % (11.6-13.7); WHITE BLOOD COUNT (AUTO) 17.5 K/uL (4.8-10.8)
--- NOTE | 2019-11-21 07:20 | NUR ---
RECEIVED PT FROM CORPORATE LICENSED BROKER NURSELILA, PT IS AWAKE AND ON A SOFT WRIST RESTRAINT, IV LINE ON THE LEFT HAND G. 22 WITH IVF 1/2 NS INFUSING AST 40ML/HR, INTACT, FALL PRECAUTION ENFORCED, SIDE RAILS ARE UP AND CALL LIGHT WITHIN REACH, PT HAS FONSECA CATHETER IN PLACE, ON OXYMIZER AT 10L IN PLACE AND NO SIGN OF DISTRESS NOTED, WILL MONITOR PT.
[2019-11-21 07:30] LABS: CARBON DIOXIDE 27.9 mmol/L (21-32); CHLORIDE 116 mmol/L (98-107); CREATININE 0.8 mg/dL (0.6-1.3); GLUCOSE 271 mg/dL (74-106); SODIUM SERUM 152 mmol/L (136-145); UREA NITROGEN, BLOOD 28 mg/dL (7-18)
[2019-11-21 08:00] VITALS: BP 122/60
[2019-11-21 08:00] LABS: MAGNESIUM 1.9 mg/dL (1.8-2.4); PHOSPHORUS 2.6 mg/dL (2.5-4.9)
[2019-11-21 08:11] LABS: LYMPHOCYTES % (MANUAL) 4 % (20-46); MONOCYTES % (MANUAL) 2 % (5-12)
[2019-11-21 08:35] LABS: POTASSIUM 2.9 mmol/L (3.5-5.1)
[2019-11-21] MEDS: NACL 0.45% 1,000 ML IV SCH (08:50)
--- NOTE | 2019-11-21 09:15 | NUR ---
PICC LINE INSERTION WAS STARTED NOW, TIME OUT DONE WITH PICC LINE NURSE, ULTRASOUND TECHNICIANS ON BEDSIDE, NO SIGN OF DISTRESS NOTED ON THE PT.
--- NOTE | 2019-11-21 09:40 | NUR ---
PICC LINE INSERTION WAS FINISHED NOW, X-RAY BEING DONE WELL TO CONFIRM PLACEMENT.
--- NOTE | 2019-11-21 09:45 | NUR ---
PICC LINE IS GOO TO USE NOW PER X-RAY EVALUATION AND MD ORDER.
[2019-11-21] MEDS ORDERED: POTASSIUM CHLORIDE 40 MEQ, LIDOCAINE MPF 1% 25 MG in NACL 0.9% 250 ML IV SCH (10:00)
--- NOTE | 2019-11-21 11:09 | NUR ---
PT WAS GIVEN POTASSIUM IV NOW FOR K LEVEL OF 2.9, WILL MONITOR PT.
[2019-11-21] MEDS: MEMANTINE 10 MG TAB PO SCH (11:10)
--- NOTE | 2019-11-21 11:16 | NUR ---
PT IS HAVING BREATHING TREATMENT NOW.
--- NOTE | 2019-11-21 11:53 | NUR ---
11/21/2019 RD FOLLOW UP COMPLETED PLEASE REFER TO NUTRITION PROGRESS NOTE UNDER CARE ACTIVITY FOR ESTIMATED NUTRITION NEEDS. RD RECOMMENDATIONS: 1. CONTINUE PUREE DIET WITH NECTAR THICK LIQUID VIA SPOON ONLY PER FINANCIAL ANALYSIS CONSULTANT RECOMMENDATION + ENSURE TID TOLERATED. 2. IF PT IS UNABLE TO TOLERATE PO DIET, CONSIDER ENTERAL NUTRITION. 3. RD TO FOLLOW-UP 2-3 DAYS, HIGH RISK PHILIPP WALKER, RD
[2019-11-21 12:00] VITALS: BP 129/57
--- NOTE | 2019-11-21 14:14 | NUR ---
PT WAS GIVEN CEFAZOLIN IVPB NOW. [facility] MONITOR PT.
--- NOTE | 2019-11-21 14:20 | NUR ---
ECHOCARDIOGRAM IS BEING DONE TO PT NOW.
[2019-11-21 16:00] VITALS: BP 128/53
--- NOTE | 2019-11-21 19:15 | NUR ---
ENDORSED PT TO CORRECTIONAL FACILITY NURSE NURSE, LYNDA, FOR CONTINUITY OF CARE.
--- NOTE | 2019-11-21 19:20 | NUR ---
RECEIVED BEDSIDE REPORT FROM AM SHIFT RN FOR PT'S CONTINUITY OF CARE. PT NOTED TO HAVE SOME TYPE OF THICK FLUID IN MOUTH, SUCTIONED PT AND ELEVATED HOB. NOTED PT SATURATION IS DECLINING TO 77-88% THE HIGHEST. NOTIFIED RT, WILL COME IN AND ASSESS PT. PT IS ON 10L OXYMIZER, IS ON PLANT GUARD, HAS RIGHT UA PICC LINE 2 LUMEN AND LEFT HAND 22G, PT ON SOFT WRIST RESTRAINT DT PULLING OF LINES, WILL FOLLOW RESTRAINT PROTOCOL, SAFETY MEASURES IN PLACE, CALL LIGHT IS WITHIN REACH. WILL MONITOR PT THROUGHOUT SHIFT.
--- NOTE | 2019-11-21 19:25 | NUR ---
UNABLE TO GIVE HHN TX. PT SATURATION WAS IN THE 70S. PT PLACED ON NON REBREATHER. SATURATION IS NOW 90%. B/S IS CLEAR. COURSE IN THE BASES
--- NOTE | 2019-11-21 19:30 | NUR ---
PT IS PUT ON NON-REBREATHER MASK. SATURATION BETWEEN 89-91%. WILL CONTINUE TO MONITOR PT.
--- NOTE | 2019-11-21 19:49 | NUR ---
abg obtained due to change of status. nurse khloe is aware.
[2019-11-21 20:00] VITALS: BP 126/64
--- NOTE | 2019-11-21 20:07 | NUR ---
ITM HOWELL NOTIFIED AND IS AWARE OF ABG RESULTS. PT REMAINS ON 100% NONREBREATHER
--- NOTE | 2019-11-21 20:10 | NUR ---
RT CALLED FOR ABG RESULTS. NOTIFIED MD AND MD ASSESSED PT. PT STILL REMAINS ON NON-REBREATHER, SATURATING BETWEEN 88-93%. NO NEW ORDERS FROM .
--- NOTE | 2019-11-21 20:50 | NUR ---
ASSESSED PT O2 STATUS. PT SATURATION FLUCTUATE FROM 88-93% ON A NONREBREATEHR. TRIED PLACING PT ON 10 OXYMIZER AND WAS UNABLE TO MAINTAIN SATURATION. PT IS STILL CURRENTLY ON A NONREBREATHER. TIM HOWELL AWARE
[2019-11-21] MEDS: OLANZapine 2.5 MG TAB PO SCH (21:00)
--- NOTE | 2019-11-21 21:00 | NUR ---
SOFT WRIST RESTRAINT ASSESSED. INTERVENTIONS NOT WORKING. SKIN IS INTACT, NO SIGNS OF INJURY. WILL CONTINUE TO MONITOR PT. PT SATURATION GETTING BETTER.
--- NOTE | 2019-11-21 22:21 | NUR ---
ADMINISTERED SCHEDULED MEDICATIONS ORDERED. SCHEDULED PO MEDICATION NOT GIVEN, PT UNABLE TO SWALLOW. PERFORMED SWALLOW TEST USING SPOON TO FEED WITH THICKENED WATER. PT UNABLE TO SWALLOW. PT MADE COMFORTABLE. PT AXILLARY TEMPERATURE 100, COOLING MEASURES IN PLACE. O2 SATURATION AT 93%. WILL CONTINUE TO MONITOR PT.
--- NOTE | 2019-11-21 22:56 | NUR ---
PT SATURATION DECREASED TO LOW 80S DURING HHN TX. TX WAS DC. PT BACK ON NRB
[2019-11-22] VITALS: BP 121/50
--- NOTE | 2019-11-22 | NUR ---
VS CHECKED AND CHARTED. PT AXILLARY TEMP 98.9. PT ON NON-REBREATHER MASK SATURATING AT 95%. SHOWS NO SIGNS OF DISTRESS OR DISCOMFORT AT THIS TIME. WILL CONTINUE TO MONITOR PT.
[2019-11-22] MEDS: NACL 0.45% 1,000 ML IV SCH ×2 (00:20→13:13)
--- NOTE | 2019-11-22 01:00 | NUR ---
SOFT RESTRAINTS ASSESSMENT DONE. PT TRYING TO TAKE OFF OXYGEN MASK. PERFORMED ROM EXERCISES. NO INJURY NOTED ON THE SKIN. SATURATING AT 93% AT THIS TIME. WILL CONTINUE TO MONITOR.
--- NOTE | 2019-11-22 01:05 | NUR ---
PT REMAINS ON 100% NRB. SATURATION 93%. B/S WERE CLEAR. DIMINISHED IN THE BASES. WILL CONT TO MONITOR
[2019-11-22] MEDS: ALBUTEROL SULFATE/IPRATROPIU 3 ML SOL IH SCH ×6 (03:00→23:35)
--- NOTE | 2019-11-22 03:00 | NUR ---
SOFT RESTRAINT ASSESSMENT MADE. PT TRYING TO REMOVE NON REBREATHER MASK WHEN RESTRAINT WAS KEPT OFF. REORIENTED PT, ASSESSED RESTRAINT SITE, SKIN INTACT. WILL CONTINUE TO MONITOR PT.
--- NOTE | 2019-11-22 03:05 | NUR ---
TRIED TO PLACE PT BACK ON AN OXYMIZER AT 10L BUT O2 SATURATION DROPPED DOWN TO 80%. UNABLE TO ADMINISTER BREATHING TX BECAUSE PATIENT IS NOT STABLE WHEN OFF A NONREBREATHER. PT REMAINS ON A NRB SATURATION 92%. B/S WERE CLEAR. A LITTLE COURSE ON THE RIGHT SIDE. WILL CONT TO MONITOR
[2019-11-22 04:00] VITALS: BP 119/56
--- NOTE | 2019-11-22 04:00 | NUR ---
VS CHECKED AND CHARTED. AXILLARY TEMP 99, O2 SATURATION AT 95%, NO DISTRESS NOTED. OFF LOAD PRESSURE FOR BILATERAL HEELS IN PLACE. WILL CONTINUE TO MONITOR PT.
[2019-11-22 06:44] LABS: ANION GAP 12.9 (8-16); CARBON DIOXIDE 26.4 mmol/L (21-32); CHLORIDE 121 mmol/L (98-107); GLUCOSE 272 mg/dL (74-106); POTASSIUM 3.3 mmol/L (3.5-5.1); UREA NITROGEN, BLOOD 32 mg/dL (7-18)
[2019-11-22 06:53] LABS: MAGNESIUM 2.1 mg/dL (1.8-2.4); PHOSPHORUS 2.8 mg/dL (2.5-4.9); SODIUM SERUM 157 mmol/L (136-145)
--- NOTE | 2019-11-22 06:53 | NUR ---
RECEIVED CALL FROM LAB FOR CRITICAL LAB VALUE, SODIUM 157, NOTIFIED MD, NO NEW ORDERS. PT AWAKE, WITH NO SIGNS OF DISTRESS. RESTRAINTS ON, STILL TRYING TO TAKE OFF MASK AND FONSECA CATHETER TUBING, DURING RESTRAINT ASSESSMENT. PT SATURATION AT 97%, HEEL PROTECTORS IN PLACE. WILL ENDORSE TO AM SHIFT RN FOR PT'S CONTINUITY OF CARE.
[2019-11-22 07:05] LABS: EOSINOPHILS % (AUTO) 0.1 % (0.0-4.0); HEMATOCRIT 22.7 % (36-52); HEMOGLOBIN 7.9 g/dL (12.0-18.0); LYMPHOCYTES # (AUTO) 0.5 K/uL (2.0-11.5); MEAN CORPUSCULAR HEMOGLOBIN 30 pg (27-31); MEAN CORPUSCULAR HGB CONC 35 g/dL (33-37); MEAN CORPUSCULAR VOLUME 86.2 fL (80-94); MONOCYTES # (AUTO) 0.4 K/uL (0.8-1.0); MONOCYTES % (AUTO) 1.9 % (1.7-9.3); PLATELET COUNT (AUTO) 287 K/uL (140-450); RED BLOOD CELL COUNT(AUTO) 2.63 MIL/uL (4.20-6.10); RED CELL DISTRIBUTION WIDTH 16.1 % (11.6-13.7); WHITE BLOOD COUNT (AUTO) 20.9 K/uL (4.8-10.8)
--- NOTE | 2019-11-22 07:30 | NUR ---
RECEIVED PT FROM 3RD PRESSMAN NURSELYNDA, PT IS ASLEEP, FALL PRECAUTION ENFORCED, BILATERAL HEELS PROTECTORS IN PLACE, FONSECA CATHETER INTACT, RT UA PICC LINE DOUBLE LUMEN IN PLACE WITH IVF 1/2 NS AT 60ML INFUSING, LEFT HAND GH. [address] ON SALINE LOCK, PT ON NON-REBREATHER MASK AT 100% O2 WITH SATURATION OF 98%, SOFT WRIST RESTRAINT IN PLACE, NO SIGN OF DISTRESS NOTED AND WILL MONITOR PT
[2019-11-22 08:00] VITALS: BP_SYST 119; BP_SYST 150; BP_DIAS 72; BP_DIAS 78
[2019-11-22 08:12] LABS: NEUTROPHILS % (AUTO) 95.6 % (42.2-75.2)
[2019-11-22 08:13] LABS: LYMPHOCYTES % (AUTO) 2.4 % (20.5-51.1)
[2019-11-22] MEDS: LACTOBACILLUS RHAMNOSUS GG 1 EACH CAP PO SCH (08:26)
[2019-11-22] MEDS: MEMANTINE 10 MG TAB PO SCH (08:27)
[2019-11-22] MEDS: KCL 20 MEQ/WATER INJ PREMIX 200 ML IV PRN (08:29)
--- NOTE | 2019-11-22 08:29 | NUR ---
PT WAS GIVEN HEPARIN VIA SUBQ ROUTE, PLATELET IS 287, NO ORAL MEDICATION GIVEN DUE TO PT NOT FUILLY AWAKE AND AT RISK FOR ASPIRATION, O2 SATURATION AT THIS TIME IS 97%, ON NON-REBREATHER MASK, POTASSIUM IV WAS GIVEN WELL IV FOR K LEVEL OF 3.3 , NO SIGN OF DISTRESS NOTED AND WILL MONITOR PT.
--- NOTE | 2019-11-22 10:46 | NUR ---
PT WAS ASSESSED AND REPOSITIONED NOW, CLEANED AND MADE COMFORTABLE
[2019-11-22 12:00] VITALS: BP 116/46
--- NOTE | 2019-11-22 13:06 | NUR ---
PT WAS GIVEN CEFAZOLIN IVPB NOW, PT IS AWAKE BUT NOT FULLY, ASKED IF WANTS TO HAVE FOOD BUT REFUSED, STILL NO ORAL INTAKE BEING GIVEN TO PT. WILL CONTINUE TO MONITOR PT.
--- NOTE | 2019-11-22 13:17 | NUR ---
PT WAS BERING CLEANED NOW BY NATEAS, PT IS STABLE AT THIS TIME, O2 SATURATION IS AT 98%
--- NOTE | 2019-11-22 14:00 | NUR ---
SPOKE WITH DR. WALLACE REGARDING PT'S ELEVATED WBC AND D/C TO SNF, PER DR. WALLACE, PT CAN NOT BE DISCHARGED TODAY. CALLED [facility] AND NOTIFIED BONI. ( #[phone]).
[2019-11-22 16:00] VITALS: BP 119/47
--- NOTE | 2019-11-22 16:30 | NUR ---
PT IS AWAKE AND V/S TAKEN AND IS WITHIN NORMAL LIMIT, O2 SATURATION IS TA 98%.
[2019-11-22] MEDS: DEXTROSE 5% 1,000 ML IV SCH (17:00)
[2019-11-22 18:18] LABS: APPEARANCE,URINE HAZY (CLEAR); BILIRUBIN,URINE NEGATIVE (NEGATIVE); BLOOD, URINE 1+ (NEGATIVE); COLOR,URINE YELLOW (YELLOW); LEUKOCYTE ESTERASE ,URINE 1+ (NEGATIVE); NITRITE, URINE NEGATIVE (NEGATIVE); UGLUCOSE NEGATIVE (NEGATIVE)
[2019-11-22 18:38] LABS: YEAST,URINE Many /HPF (None Seen)
--- NOTE | 2019-11-22 19:15 | NUR ---
ENDORSED PT TO BUILDING SPECIALIST NURSEKALPESH FOR CONTINUITY OF CARE.
--- NOTE | 2019-11-22 19:16 | NUR ---
RECEIVED PT FROM DAY RN, PT IS AWAKE, WITH NONREBREATHER MASK AT 25L SAT 97% RR 22 WORK OF BREATHING NOTED. MD IS AWARE PT TO BE ON BIPAP TONIGHT. FALL PRECAUTION ENFORCED, BILATERAL HEELS PROTECTORS IN PLACE, FONSECA CATHETER INTACT DRAINING YELLOW URINE, RT UA PICC LINE DOUBLE LUMEN IN PLACE WITH IVF DEXTROSE 80CC ML INFUSING, LEFT HAND GH. [address] ON SALINE LOCK. SOFT WRIST RESTRAINT IN PLACE, PT IS NPO. WITH CONSULT WITH DR PALOMO FOR POSSIBLE G-TUBE PLACEMENT,WILL MONITOR PT
[2019-11-22 20:00] VITALS: BP 121/61
[2019-11-22] MEDS: OLANZapine 2.5 MG TAB PO SCH (20:29)
--- NOTE | 2019-11-22 20:37 | NUR ---
PTS NPO HELD PO MEDICATION. WILLIAN IV MEDICATION GIVEN PER ORDERS. PT NOW ON BIPAP PER ORDERS. RR 40 SAT 95% INCREASE WORK OF BREATHING NOTED. INFORM DR DOMINGO PER MD WILL COME SEE PATIENT. Addendum: 11/22/19 at 2152 by Minda Miguel RN PATIENT HEART HIGH IN 130 MD WAS INFORMED.
[2019-11-22] MEDS ORDERED: LORazepam 2 MG/ML VIAL IVP SCH (20:40)
--- NOTE | 2019-11-22 20:52 | NUR ---
[address] DOMINGO ABOUT PATIENT. DUE TO SHORTNESS OF BREATH, PLACED PT ON BIPAP. IPAP 14 EPAP 7 RR 14 FIO2 100%. WILL TITRATE FIO2 TO KEEP SATS GREATER THEN 92%
--- NOTE | 2019-11-22 20:57 | NUR ---
ADMINISTERED ATIVAN IVP PER ORDERS. PT TOLERATED WELL. WILL CONTINUE TO MONITOR PATIENTS BREATHING. PT IS MID CODE. RESPONDS TO NAME OPEN EYES AND ACKNOWLEDGE NURSE, SAFETY MEASURES ARE IN PLACE.
--- NOTE | 2019-11-22 21:15 | NUR ---
PATIENT IS O2 SAT WELL ON BIPAP AT 96% RR STILL HIGH 26-32 AND SHALLOW WORK OF BREATHING IMPROVED SLIGHTLY. WILL CONTINUE TO MONITOR.
--- NOTE | 2019-11-22 22:20 | NUR ---
PT REMAINS ON BIPAP SAT WELL 96% RR 28 WITH SHALLOW AND SYMMETRICAL RESPIRATIONS. PT REMAINS SINUS TACHYCARDIC 113. PT WITH EYES CLOSED BUT IS EASILY AROUSABLE TO NAME. HOB ELEVATED. SAFETY MEASURES ARE IN PLACE. WILL CONTINUE TO MONITOR.
[2019-11-23] VITALS (7 sets, daily range): BP systolic 73–124; BP diastolic 21–72
--- NOTE | 2019-11-23 00:15 | NUR ---
PAGED DR DOMINGO TO INFORM PT CONVERTED TO UNCONTROLLED A-FIB NO RVR HR 113. DOCTOR IN TO SEE PATIENT AND GAVE ORDER TO GIVE 1L NS BOLUS. VS: 111/67 HR 117 96% RR 32 FLACC 0. WILL CARRY NEW ORDER.
[2019-11-23] MEDS ORDERED: NACL 0.9% 1,000 ML IV ONE ×2 (00:25→20:00)
--- NOTE | 2019-11-23 00:25 | NUR ---
1L BOLUS OF NORMAL SALINE NOW INFUSING PER ORDERS. WILL CONTINUE TO MONITOR.
--- NOTE | 2019-11-23 02:05 | NUR ---
PT IS SLEEPING COMFORTABLY IN BED WITH EYES CLOSED. PT REMAINS ON BIPAP SAT WELL 97% RESPIRATIONS SHALLOW AND SYMMETRICAL RR 30. HOB ELEVATED. BOLUS WAS COMPLETE. IVF PER ORDERS D5 80ML/H INFUSING WELL. SAFETY MEASURES ARE IN PLACE. WILL CONTINUE TO MONITOR. Addendum: 11/23/19 at 0211 by Minda Miguel RN BIPAP FIO2 60%
[2019-11-23] MEDS: ALBUTEROL SULFATE/IPRATROPIU 3 ML SOL IH SCH ×5 (02:52→20:42)
--- NOTE | 2019-11-23 04:00 | NUR ---
PATIENTS VSS. RR REMAIN HIGH 29 SAT WELL 95% ON BIPAP FIO2 60%. WILL CONTINUE TO MONITOR.
[2019-11-23] MEDS: DEXTROSE 5% 1,000 ML IV SCH ×2 (04:01→16:15)
[2019-11-23 06:52] LABS: ANION GAP 10.3 (8-16); CARBON DIOXIDE 27.7 mmol/L (21-32); CHLORIDE 122 mmol/L (98-107); CREATININE 0.9 mg/dL (0.6-1.3); UREA NITROGEN, BLOOD 30 mg/dL (7-18)
[2019-11-23 07:01] LABS: MAGNESIUM 2.1 mg/dL (1.8-2.4); PHOSPHORUS 2.3 mg/dL (2.5-4.9)
[2019-11-23 07:05] LABS: BASOPHILS % (AUTO) 0.1 % (0.0-2.0); EOSINOPHILS % (AUTO) 0.1 % (0.0-4.0); HEMATOCRIT 21.4 % (36-52); HEMOGLOBIN 7.2 g/dL (12.0-18.0); LYMPHOCYTES # (AUTO) 0.7 K/uL (2.0-11.5); LYMPHOCYTES % (AUTO) 3.2 % (20.5-51.1); MEAN CORPUSCULAR HEMOGLOBIN 29 pg (27-31); MEAN CORPUSCULAR HGB CONC 34 g/dL (33-37); MEAN CORPUSCULAR VOLUME 86.7 fL (80-94); MONOCYTES # (AUTO) 0.3 K/uL (0.8-1.0); MONOCYTES % (AUTO) 1.2 % (1.7-9.3); NEUTROPHILS # (AUTO) 19.7 K/uL (1.8-7.7); NEUTROPHILS % (AUTO) 95.4 % (42.2-75.2); PLATELET COUNT (AUTO) 270 K/uL (140-450); RED BLOOD CELL COUNT(AUTO) 2.47 MIL/uL (4.20-6.10); RED CELL DISTRIBUTION WIDTH 15.9 % (11.6-13.7); WHITE BLOOD COUNT (AUTO) 20.7 K/uL (4.8-10.8)
--- NOTE | 2019-11-23 07:30 | NUR ---
GAVE BEDSIDE REPORT TO DAY RN. PT ENDORSED IN STABLE CONDITION.
--- NOTE | 2019-11-23 07:31 | NUR ---
RECEIVED REPORT FROM DIRECTOR OF REHABILITATION NURSE. PATIENT LYING DOWN IN BED, ON BIPAP, LETHARGIC, O2 SAT AT 94% WITH BIPAP FIO2: 92%. AAOX1, RESPONDS TO PAINFUL STIMULI. FONSECA CATHETER IN PLACE, PATENT. RUARM PICC LINE, INTACT, PATENT, AND INFUSING IVF PER ORDERS. SKIN INTACT. ON SOFT WRIST RESTRAINTS DUE TO PULLING OUT TUBES. REVIEWED PLAN OF CARE WITH PATIENT. UNABLE TO COMPREHEND. SAFETY MEASURES IN PLACE, CALL LIGHT WITHIN REACH. WILL CONTINUE TO MONITOR.
[2019-11-23 07:37] LABS: GLUCOSE 401 mg/dL (74-106); SODIUM SERUM 157 mmol/L (136-145)
--- NOTE | 2019-11-23 08:00 | NUR ---
P.T. NOTES HOLD P.T. DUE TO PATIENT IS VERY LETHARGIC AND CURRENTLY ON BIPAP MACHINE. HIS NURSE LILA WAS MADE AWARE. PLAN: WE'LL FOLLOW UP AGAIN TOMORROW IF PATIENT IS MORE AWAKE AND STABLE TO PARTICIPATE WITH P.T. SERVICES.
[2019-11-23] MEDS ORDERED: DEXTROSE 50% 50 ML SYR IVP PRN ×2 (08:50)
[2019-11-23] MEDS ORDERED: INSULIN LISPRO SLIDING SCALE 100 UNITS/ML VIAL SUBQ PRN (08:50)
[2019-11-23] MEDS: LACTOBACILLUS RHAMNOSUS GG 1 EACH CAP PO SCH (09:00)
[2019-11-23] MEDS: MEMANTINE 10 MG TAB PO SCH (09:00)
[2019-11-23] MEDS: KCL 20 MEQ/WATER INJ PREMIX 200 ML IV PRN (09:48)
[2019-11-23] MEDS: INSULIN LISPRO SLIDING SCALE 100 UNITS/ML VIAL SUBQ PRN ×4 (09:50→20:36)
--- NOTE | 2019-11-23 10:04 | NUR ---
PATIENT LYING DOWN IN BED. NO DISTRESS NOTED. SCHEDULED MEDICATIONS DUE GIVEN. WILL CONTINUE TO MONITOR.
[2019-11-23] MEDS ORDERED: BLOOD GLUCOSE MONITORING 1 DEV DEV FS SCH (11:30)
[2019-11-23] MEDS: BLOOD GLUCOSE MONITORING 1 DEV DEV FS SCH ×3 (11:30→20:34)
--- NOTE | 2019-11-23 12:53 | NUR ---
SCHEDULED MEDICATIONS DUE GIVEN. FAMILY MEMBERS AT BEDSIDE. NO DISTRESS NOTED. WILL CONTINUE TO MONITOR.
--- NOTE | 2019-11-23 13:15 | NUR ---
PATIENT HEART RATE 148, NOTIFIED DR. STEIN, PER CONTINUE TO MONITOR FOR NOW AND SHE WILL ODER TROPONIN AND EKG. WILL CONTINUE TO MONITOR.
--- NOTE | 2019-11-23 13:22 | NUR ---
PT. CONDITION CHANGE TO LOW GAVIN SCALE AT RISK, SCREEN FOR LOW GAVIN SCALE AT RISK, CONTINUE TO FOLLOW PRESSURE ULCER PREVENTION INTERVENTIONS. -TURN AND REPOSITION PATIENT Q 2H -ASSESS AND MONITOR SKIN CONDITION DURING POSITION CHANGE -OFFLOAD BILATERAL HEELS BY PLACING PILLOWS UNDER CALVES AT ALL TIMES, UNLESS OTHERWISE CONTRAINDICATED -PRESSURE REDISTRIBUTION BY PLACING PILLOWS AND OFFLOADING RIGHT HIP -KEEP SKIN CLEAN AND DRY AT ALL TIMES.
--- NOTE | 2019-11-23 13:40 | NUR ---
*S.T. Note* Pt seen at bedside, lethargic and on Bipap, slightly grayish in color. Swallow tx with P.O. trials to be withheld at this time as pt's condition does not appear ideal for P.O. intake. Will defer at this time and reattempt tomorrow. Time [id number]
[2019-11-23] MEDS ORDERED: NACL 0.9% 500 ML IV SCH (15:40)
--- NOTE | 2019-11-23 16:16 | NUR ---
PATIENT BP: 90/50, PULSE 111. NOTIFIED DR. GALARZA, PER MD GIVE 500 ML NS BOLUS. BOLUS HANGED AT THIS TIME. WILL CONTINUE TO MONITOR.
--- NOTE | 2019-11-23 18:20 | NUR ---
4 UNITS OF INSULIN GIVEN PER SCALE. WILL CONTINUE TO MONITOR.
--- NOTE | 2019-11-23 19:00 | NUR ---
RECEIVED PT W/ CANCELLED RESTRAINT ORDER 1858 , WILL DISCONTINUE
--- NOTE | 2019-11-23 19:10 | NUR ---
NO G TUBE INSERTION PER DR. PALOMO WHO CAME IN TO CHECK ON PT. HE SAID PT COULD NOT HANDLE IT
[2019-11-23] MEDS ORDERED: SODIUM PHOS / POTASSIUM PHOS 1 PKT PDR PO ONE (19:40)
[2019-11-23] MEDS ORDERED: KCL 20 MEQ/WATER INJ PREMIX 100 ML IV ONE (19:40)
--- NOTE | 2019-11-23 19:41 | NUR ---
GAVE REPORT TO RETURNER NURSE FOR CONTINUITY OF CARE. PATIENT IN STABLE CONDITION
--- NOTE | 2019-11-23 20:10 | NUR ---
KATE INFORMED THAT BP IS GOING DOWN AT 73/21 ; RR= 45 BIPAP; 94% O2 AND 99 HEART RATE.
[2019-11-23] MEDS ORDERED: SCOPOLAMINE 1.5 MG/72 HR PATCH TD SCH ×2 (20:30→20:40)
[2019-11-23] MEDS ORDERED: LORazepam 1 MG TAB PO PRN ×2 (20:30→20:40)
[2019-11-23] MEDS ORDERED: ONDANSETRON 4 MG/2 ML VIAL IVP PRN ×2 (20:30→20:40)
[2019-11-23] MEDS ORDERED: MORPHINE SULFATE 50 MG in NACL 0.9% 45 ML IV PRN (20:30)
--- NOTE | 2019-11-23 20:30 | NUR ---
SAID TO CANCEL GIVING THE POTASSIUM CHLORIDE 20 MEQ'S DUE FOR 2100 AND THE NS 1 LITER FOR LOW BP; AND TO START ON MORPHINE. TO GIVE MORPHINE FOR NOW.
--- NOTE | 2019-11-23 20:31 | NUR ---
PT IS NOT TAKING ANYTING ORALLY FOR NOW; PER DR. VINES'S VISIT EARLIER AT 1910 RESTAURANT AREA DIRECTOR GT TUBE INSERTION DUE TO PT'S COULD NOT HANDLE IT
[2019-11-23] MEDS ORDERED: MORPHINE SULFATE 50 MG in NACL 0.9% 45 ML IV SCH (20:40)
--- NOTE | 2019-11-23 21:00 | NUR ---
INFORMED BY SILICATOR THAT [facility] WILL INFORM AND THAT ENDORSSE IT TO NEXT SHIFT
--- NOTE | 2019-11-23 21:15 | NUR ---
DR. GALARZA ALSO AWARE THAT POTASSIUM LEVEL IS 3.0 AT 0540 AM AND THAT K WAS GIVEN AT 940AM THIS AM 20 MEQ'S, AND THAT THE DUE 2100 POTASSIUM CHLORIDE IS NOT GOING TO BE GIVEN DUE TO MORPHINE DRIP WILL BE STARTED. SAID OK.
[2019-11-23] MEDS ORDERED: MORPHINE SULFATE 10 MG/ML VIAL ONE ×2 (21:29→21:41)
--- NOTE | 2019-11-23 21:45 | NUR ---
MIXED 50MG OF MORPHINE. AT THE OMNICELL TOOK OUT 5 VIALS OF 10MG/ML= 50MG, THEN MIXED IT WITH IVF NS AT 45 ML
--- NOTE | 2019-11-23 21:53 | NUR ---
STARTED MORPHINE DRIP AND REGULATED IT TO RATE 2MG PER HR Addendum: 11/23/19 at 2215 by Jie Perez RN RATE OF 2ML/HR
--- NOTE | 2019-11-23 22:34 | NUR ---
FAMILY WAS HERE AT BEDSIDE, COMFORT GIVEN TO FAMILY. PATIENT STILL ON BIPAP WITH LABORED BREATHING. STILL WITH VITAL SIGNS, WILL DOCUMENT VITAL SIGNS
--- NOTE | 2019-11-24 01:23 | NUR ---
CHECKED ON PATIENT STILL LABORED SHALLOW BREATHING, STILL PINKISH, WILL MONITOR PATIENT
--- NOTE | 2019-11-24 02:45 | NUR ---
MONITOR PATIENT'S FREDIS RT CHECKED ON PATIENT,DR. KENT CHECKED ON PATIENT
--- NOTE | 2019-11-24 04:00 | NUR ---
MAKE PT COMFORTABLE ADJUSTED THE PILLOWS FOR COMFORT, ADJUSTED HEAD FOR COMFORT
[2019-11-24 06:00] VITALS: BP 98/69
--- NOTE | 2019-11-24 06:39 | NUR ---
rec'd pt on enzo v60 bipap settings 14/ rr 14 fio2 70% alarms on and audile and ambu bag at hob and bipap is plugged into red outlet, b\s are coarse bilaterally pt is wearing large face and pt sleeping
--- NOTE | 2019-11-24 07:30 | NUR ---
RECEIVED BEDSIDE REPORT FROM CREPE SOLE SCOURER NURSE SHANIA FOR CONTINUITY OF CARE. PT IS SLEEPING ON BED COMFORTABLY AT THIS TIME AND UNAROUSABLE. PT IS AAOX 0. RESPIRATION EVEN AND UNLABORED ON BIPAP. NO SIGNS OF DISTRESS NOTED. PICC LINE DOUBLE LUMEN ON ANTOINE, CLEAN AND INTACT, INFUSING 2ML/HR MORPHINE DRIP CONTINUALLY. SKIN DRY AND CLEAN, OFFLOAD BILATERAL HEELS AND OFFLOAD PRESSURE ON BONY AREAS WITH PILLOWS. PT IS INCONTINENT AND FONSECA IN PLACE, DRAINING YELLOW URINE WITH GRAVITY. TELE MONITOR ATTACHED. SAFETY MEASURES IN PLACE. FALL RISK PROTOCOL IN PLACE. BED IN LOW POSITION AND CALL LIGHT WITHIN REACH.
[2019-11-24 08:00] VITALS: BP 82/35
--- NOTE | 2019-11-24 09:28 | NUR ---
PT IS DESATURATING TO 55% ON BIPAP, RT ADJUSTED THE FIO2. FAMILY VISITORS ( AND SIS IN [place] AND MICKI) ARE BY BEDSIDE, BOTH AWARE AND SAID "MY DAUGHTER IS ON THE WAY TO THE HOSPITAL AND SHE WILL DECIDE WHEN ARRIVED." SAFETY MEASURES IN PLACE.
--- NOTE | 2019-11-24 11:15 | NUR ---
PT'S FAMILY AND DAUGHTER KENN ARE BY BEDSIDE. KENN REQUESTED TO SPEAK WITH MD. NOTIFIED DR STEIN AND DR STEIN WILL SPEAK WITH PT'S FAMILY AND DAUGHTER KENN SHORTLY.
--- NOTE | 2019-11-24 11:48 | NUR ---
S.T. NOTE Noted order cancellations for ST services due to pt's declining condition/comfort care measures. Will DC to nsg care at this time.
[2019-11-24] MEDS ORDERED: SCOPOLAMINE 1.5 MG/72 HR PATCH TD SCH (12:00)
--- NOTE | 2019-11-24 12:05 | NUR ---
pt off bipap as per dr. franklin and no o2 family at bedside
--- NOTE | 2019-11-24 12:29 | NUR ---
ADMINISTERED PATCH ON R ARM, MED EDUCATION PROVIDED TO DAUGHTER KENN AND FAMILY AT BEDSIDE. PT IS ON RA, DESATURATING TO 55% AND PULSE 35. FLACC 0. SAFETY MEASURES IN PLACE.
--- NOTE | 2019-11-24 12:36 | NUR ---
RECEIVED CALL FROM [facility] AND TOLD THAT PT IS ASYSTOLE ON MONITOR. WENT INTO ROOM AND ASSESSED PT, NO PULSE AND BREATHING. FAMILY IS BY BEDSIDE.
--- NOTE | 2019-11-24 12:45 | NUR ---
MORPHINE DROP COMPLETED INFUSE; NO WASTE. REMOVED EMPTY BAG FROM LOCK BOX.
--- NOTE | 2019-11-24 13:47 | NUR ---
CALLED [facility] AND SPOKE WITH BO Maher PROVIDED BO WITH ALL INFORMATION. REFERENCE #[id number]. PER BO, SHE WILL PASS THIS CASE ON [place] AND SOMEONE WILL CONTACT US.
--- NOTE | 2019-11-24 14:00 | NUR ---
CALLED [facility] [phone] AND SPOKE WITH FRANC Morrison. PER FRANC, I AM THE 3RD CALLER ON THE LIST AND SOMEONE WILL CALL BACK FOR MORE INFORMATION. PROVIDED A CALL BACK NUMBER.
--- NOTE | 2019-11-24 14:49 | NUR ---
RECEIVED A CALL FROM [facility]. PER MAGALIE, BASED ON EVALUATION, THEY WILL NOT COME IN FOR BODY PART DONATION AND THE BODY MAY RELEASE. CASE # [id number].
--- NOTE | 2019-11-24 14:51 | NUR ---
REMOVED PICC LINE, IV ON L HAND, ALL INTACT AND COMPLETED, NO BLEEDING ON SITES. DC FONSECA.
--- NOTE | 2019-11-24 14:55 | NUR ---
AFFORDABLE PRE-ARRANGED PLAN FROM [facility] [phone] [employer] TOOK THE BODY AND PT'S BELONGINGS. Addendum: 11/24/19 at 1553 by Renay Esqueda RN [facility]
--- NOTE | 2019-11-24 15:33 | NUR ---
RECEIVED A CALL BACK FROM [employer] AND SPOKE WITH ELSA PRINCE. PROVIDED ALL REQUESTED INFORMATION TO ELSA AND ELSA WAS AWARE THAT MORTUARY WAS SET UP. PER ELSA, WE MAY RELEASE THE BODY AND CASE #[id number].
== END 2019-11-24 14:55 | disposition expired | DRG 871 ==
LOC: MED 15:24 → MTU 23:12
PROVIDERS: ADMIT General Practice; ATTEND General Practice
PROC: 02HV33Z Insertion of Infusion Device into Superior Vena Cava, Percutaneous Approach (ICD-10-PCS; principal; 2019-11-21)
PROC: B548ZZA Ultrasonography of Superior Vena Cava, Guidance (ICD-10-PCS; 2019-11-21)
PROC: 5A09457 Assistance with Respiratory Ventilation, 24-96 Consecutive Hours, Continuous Positive Airway Pressure (ICD-10-PCS; 2019-11-23)
DX: A41.01 Sepsis due to Methicillin susceptible Staphylococcus aureus (principal); G93.41 Metabolic encephalopathy; N17.0 Acute kidney failure with tubular necrosis; J15.211 Pneumonia due to Methicillin susceptible Staphylococcus aureus; E43 Unspecified severe protein-calorie malnutrition; J96.01 Acute respiratory failure with hypoxia; J69.0 Pneumonitis due to inhalation of food and vomit; I50.43 Acute on chronic combined systolic (congestive) and diastolic (congestive) heart failure; N39.0 Urinary tract infection, site not specified; Z68.1 Body mass index [BMI] 19.9 or less, adult; E87.0 Hyperosmolality and hypernatremia; I46.9 Cardiac arrest, cause unspecified; E87.6 Hypokalemia; E03.9 Hypothyroidism, unspecified; F03.90 Unspecified dementia, unspecified severity, without behavioral disturbance, psychotic disturbance, mood disturbance, and anxiety; M25.552 Pain in left hip; E83.39 Other disorders of phosphorus metabolism; E86.0 Dehydration; K59.00 Constipation, unspecified; M25.551 Pain in right hip; R74.0 Nonspecific elevation of levels of transaminase and lactic acid dehydrogenase [LDH]; E05.90 Thyrotoxicosis, unspecified without thyrotoxic crisis or storm; F29 Unspecified psychosis not due to a substance or known physiological condition; E78.5 Hyperlipidemia, unspecified; F41.9 Anxiety disorder, unspecified; N28.1 Cyst of kidney, acquired; Z96.641 Presence of right artificial hip joint; Z90.49 Acquired absence of other specified parts of digestive tract; I25.2 Old myocardial infarction; Z99.3 Dependence on wheelchair; Z79.899 Other long term (current) drug therapy
CPT/HCPCS: 36415; 36600; 70450; 71045; 71275; 76604; 80048; 80053; 80202; 81001; 82150; 82803; 82948; 83036; 83605; 83690; 83735; 83880; 84100; 84436; 84439; 84443; 84479; 84484; 85025; 85379; 85610; 85730; 86704; 86706; 86708; 86709; 86803; 87040; 87070; 87081; 87086; 87186; 87205; 87340; 89220; 92526; 92610; 93005; 93970; 94640; 94660; 96361; 96365; 97112; 97161-GP; 99285; C1751; J0690; J0696; J1644; J1815; J1940; J2001; J2060; J2270; J2543; J3370; J3480; J7030; J7042; J7060; Q0092; Q9967